=== PATIENT | male | born 1985 | race African-American/Black ===

== ENCOUNTER 2020-03-05 19:27 | Inpatient (IN) | payer MEDICAID ==
[~2020-03-05] VITALS: Ht 188 cm; Wt 101.2 kg
[2020-03-05 20:46] LABS: BASOPHILS % 0.8 % (0.0-2.0); EOSINOPHILS % 3.4 % (0.0-5.0); HEMATOCRIT. 44.3 % (42.0-52.0); HEMOGLOBIN. 15.1 g/dL (14.0-18.0); LYMPHOCYTES % 43.7 % (20.0-50.0); MEAN CORPUSCULAR HEMOGLOBIN 29.2 pg (28.0-32.0); MEAN CORPUSCULAR VOLUME 85.4 fL (80.0-94.0); MEAN PLATELET VOLUME 8.5 fl (7.4-10.4); NEUTROPHILS % 44.1 % (40.0-76.0); PLATELET 235 x1000/uL (130-400); RED BLOOD CELL COUNT 5.19 mill/uL (4.7-6.1); RED CELL DISTRIBUTION WIDTH 13.7 % (11.6-14.6)
[2020-03-05 20:49] LABS: PROTHROMBIN TIME 10.9 sec (9.6-11.0)
[2020-03-05 21:10] LABS: CLARITY URINE CLEAR (CLEAR); COLOR URINE YELLOW (YELLOW); KETONES URINE NEGATIVE (NEGATIVE); LEUKOCYTE ESTERASE URINE TRACE (NEGATIVE); NITRITE URINE NEGATIVE (NEGATIVE); OCCULT BLOOD URINE NEGATIVE (NEGATIVE); PROTEIN URINE NEGATIVE (NEGATIVE); SPECIFIC GRAVITY URINE 1.013 (1.005-1.030); UROBILINOGEN URINE 0.2 E.U./dL (0.2-1.0)
[2020-03-05 21:19] LABS: *AMPHETAMINES SCREEN URINE NEGATIVE (NEGATIVE); CANNABINOID URINE SCREEN PRESUMTIVE POSITIVE (NEGATIVE); METHADONE URINE SCREEN NEGATIVE (NEGATIVE); OPIATES URINE SCREEN NEGATIVE (NEGATIVE); PHENCYCLIDINE URINE SCREEN NEGATIVE (NEGATIVE)
[2020-03-05 21:20] LABS: *BARBITURATES SCREEN URINE NEGATIVE (NEGATIVE); *BENZODIAZEPINES SCREEN URINE NEGATIVE (NEGATIVE); *COCAINE SCREEN URINE NEGATIVE (NEGATIVE)
[2020-03-05 21:26] LABS: CHLORIDE 109 mEq/L (98-107)
[2020-03-05 21:30] LABS: ETHANOL BLOOD < 10 mg/dL
[2020-03-05 21:33] LABS: LDL CHOLESTEROL 92 mg/dL (5-100)
[2020-03-06] MEDS ORDERED: ASPIRIN 325MG EC TABLET PO SCH (00:30)
[2020-03-06] MEDS ORDERED: ONDANSETRON HCL 4MG/2ML INJ IV PRN (01:45)
[2020-03-06] MEDS ORDERED: CLONIDINE 0.1MG TABLET PO PRN (01:45)
[2020-03-06] MEDS ORDERED: DOCUSATE SODIUM 100MG CAPSULE PO PRN (01:45)
[2020-03-06] MEDS ORDERED: HYDROCODONE/ACETAMINOPHEN 5/325MG TABLET PO PRN (01:45)
[2020-03-06] MEDS ORDERED: MAGNESIUM/ALUMINUM HYDROXIDE/SIMETHICONE 30ML UDC PO PRN (01:45)
[2020-03-06] MEDS ORDERED: GUAIFENESIN 200MG/10ML SUGAR FREE UDC PO PRN (01:45)
[2020-03-06] MEDS ORDERED: ACETAMINOPHEN 325MG TABLET PO PRN (01:45)
[2020-03-06] MEDS: ASPIRIN 81MG EC TABLET PO SCH (10:50)
[2020-03-06 18:48] VITALS: BP 141/98
[2020-03-06 20:00] VITALS: BP 139/87
[2020-03-06 21:07] VITALS: BP 127/65
[2020-03-06 22:00] VITALS: BP 127/76
[2020-03-07] VITALS (7 sets, daily range): BP systolic 98–133; BP diastolic 60–83
[2020-03-07 06:07] LABS: BASOPHILS % 0.6 % (0.0-2.0); EOSINOPHILS % 4.7 % (0.0-5.0); HEMATOCRIT. 42.4 % (42.0-52.0); HEMOGLOBIN. 14.5 g/dL (14.0-18.0); LYMPHOCYTES % 49.9 % (20.0-50.0); MEAN CORPUSCULAR HEMOGLOBIN 28.8 pg (28.0-32.0); MEAN CORPUSCULAR VOLUME 84.5 fL (80.0-94.0); MEAN PLATELET VOLUME 8.6 fl (7.4-10.4); MONOCYTES % 9.9 % (2.0-8.0); NEUTROPHILS % 34.9 % (40.0-76.0); PLATELET 217 x1000/uL (130-400); RED BLOOD CELL COUNT 5.02 mill/uL (4.7-6.1); RED CELL DISTRIBUTION WIDTH 13.6 % (11.6-14.6)
[2020-03-07 06:17] LABS: CHLORIDE 108 mEq/L (98-107)
[2020-03-07 06:25] LABS: LDL CHOLESTEROL 97 mg/dL (5-100)
[2020-03-07 06:26] LABS: HDL CHOLESTEROL 41 mg/dL (40-59)
[2020-03-07] MEDS: ASPIRIN 81MG EC TABLET PO SCH (08:02)
== END 2020-03-07 12:15 | disposition home or self-care (01) | DRG 47 ==
LOC: ER 19:27 → 3WST 23:09 → EDBEDREQ 23:12 → EDBEDREQSVC 23:12 → EDBEDREQTM 23:12 → ENRESERV 03-06 17:02
PROVIDERS: ADMIT Hospitalist; ATTEND Hospitalist
DX: G45.9 Transient cerebral ischemic attack, unspecified (principal); F41.9 Anxiety disorder, unspecified; H53.8 Other visual disturbances; R47.81 Slurred speech; Z79.899 Other long term (current) drug therapy
CPT/HCPCS: 36415; 71045; 80053; 80061; 80305; 80320; 81003; 82465; 82962; 83721; 84484; 85025; 93005; 93970; 99285; G0480